=== PATIENT | female | born 1965 | race Caucasian/White ===

== ENCOUNTER 2019-10-05 15:17 | Emergency (ER) | payer OTHER ==
[2019-10-05 17:46] VITALS: BP 109/58
[2019-10-05 17:53] LABS: Influenza A Molecular Negative (Negative); Influenza B Molecular Negative (Negative)
--- NOTE | 2019-10-05 18:39 | UC ---
FLU HPI - HPI Summary HPI Summary: 54-year-old woman comes in with influenza-like symptoms for 2 days. She's had body aches headache cough and feeling ill. She has not had any fever measured. No shortness of breath or chest congestion. She did take some over-the- counter medications which did not help much with the symptoms. She does travel to [facility]. - History of Current Complaint Chief Complaint: UCGeneralIllness Stated Complaint: FLU SYMPTOMS Time Seen by Provider: 10/05/19 17:16 Pain Intensity: 0 - Allergy/Home Medications Allergies/Adverse Reactions: Allergies Allergy/AdvReac Type Severity Reaction Status Date / Time No Known Allergies Allergy Verified 10/05/19 17:46 Home Medications: Home Medications Fexofenadine (NF) [Isidra 180 (NF)] 1 dose PO ONCE PRN 10/05/19 [History Confirmed 10/05/19] Ibuprofen 1 dose PO ONCE PRN 10/05/19 [History Confirmed 10/05/19] PMH/Surg Hx/FS Hx/Imm Hx Previously Healthy: Yes - Surgical History Surgical History: None - Family History Known Family History: Positive: None - Social History Alcohol Use: Weekly Substance Use Type: None Smoking Status (MU): Never Smoked Tobacco Review of Systems All Other Systems Reviewed And Are Negative: Yes Constitutional: Positive: Other - see hpi Skin: Positive: Negative Eyes: Positive: Negative ENT: Positive: Nasal Discharge - clear Respiratory: Positive: Cough, Other - see hpi. Negative: Shortness Of Breath Cardiovascular: Positive: Negative Gastrointestinal: Positive: Negative Motor: Positive: Negative Neurovascular: Positive: Negative Musculoskeletal: Positive: Myalgia Neurological/Mental Status: Positive: Headache Psychological: Positive: Negative Is Patient Immunocompromised?: No Physical Exam Triage Information Reviewed: Yes Appearance: No Pain Distress, Well-Nourished, Ill-Appearing - mild Vital Signs: Initial Vital Signs Temp 98.7 F 10/05/19 17:42 Pulse 52 10/05/19 17:42 Resp 18 10/05/19 17:42 BP 109/58 10/05/19 17:42 Pulse Ox 97 10/05/19 17:42 Vital Signs Reviewed: Yes Eye Exam: Normal Eyes: Positive: Conjunctiva Clear ENT: Positive: Pharynx normal, Nasal drainage, TMs normal Neck: Positive: Supple Respiratory: Positive: Lungs clear, Normal breath sounds, No respiratory distress Cardiovascular: Positive: RRR Musculoskeletal: Positive: Strength Intact, ROM Intact Neurological: Positive: Alert, Muscle Tone Normal Psychological: Positive: Normal Response To Family, Age Appropriate Behavior Skin Exam: Normal Flu Course/Dx - Course Course Of Treatment: No fever recorded are reported. No shortness of breath essentially no respiratory symptoms to suggest coronavirus. Nursing did discuss the patient with infectious disease. Plan is to treat for a viral infection and then have the patient get reevaluated if not improving or worse. - Differential Dx/Diagnosis Provider Diagnosis: Influenza-like illness Discharge ED - Sign-Out/Discharge Documenting (check all that apply): Patient Departure All imaging exams completed and their final reports reviewed: No Studies - Discharge Plan Condition: Stable Disposition: HOME Patient Education Materials: Viral Syndrome (ED) Referrals: Forrest Jimenez MD [Primary Care Provider] - Additional Instructions: FOLLOW UP WITH YOUR DOCTOR IF NOT COMPLETELY IMPROVED. GET REEVALUATED SOONER IF NOT IMPROVED OR WORSE OR ANY QUESTIONS OR CONCERNS. - Billing Disposition and Condition Condition: STABLE Disposition: Home
== END 2019-10-05 18:56 | disposition home or self-care (01) ==
LOC: UCEAST 15:17
DX: M79.10 Myalgia, unspecified site (principal); R05 Cough; R51 Headache
CPT/HCPCS: 87651; 99211; G0463